=== PATIENT | male | born 1965 | race Caucasian/White ===

== ENCOUNTER 2021-03-16 10:59 | Emergency (ER) | payer OTHER ==
[~2021-03-16] VITALS: Ht 167.6 cm; Wt 56.7 kg
[2021-03-16] MEDS ORDERED: BAYER CHEWABLE81 MG PO (13:22)
[2021-03-16] MEDS ORDERED: KEPPRA100 MG/1 M PO (13:23)
[2021-03-16] MEDS ORDERED: DOCU LIQUI50 MG/5 ML PO (13:23)
[2021-03-16] MEDS ORDERED: FOLIC ACID1 MG PO (13:23)
[2021-03-16] MEDS ORDERED: MOBIC15 MG PO (13:24)
[2021-03-16] MEDS ORDERED: METFORMIN HCL850 MG PO (13:24)
[2021-03-16] MEDS ORDERED: RISPERDAL 1 MG T1 MG PO (13:26)
[2021-03-16] MEDS ORDERED: SEROQUEL 25 MG25 M1 PO (13:27)
[2021-03-16] MEDS ORDERED: SIMVASTATIN40 MG PO (13:29)
[2021-03-16] MEDS ORDERED: SYNTHROID100 MC1 PO (13:29)
[2021-03-16] MEDS ORDERED: TERAZOSIN HCL5 MG PO (13:31)
[2021-03-16] MEDS ORDERED: TRAZODONE HCL100 MG PO (13:31)
[2021-03-16] MEDS ORDERED: VIMPAT10 MG/1 ML PO (13:34)
[2021-03-16 14:00] VITALS: BP 114/68
== END 2021-03-16 15:33 | disposition home or self-care (01) ==
LOC: ER 10:59
DX: Z43.1 Encounter for attention to gastrostomy (principal); F17.210 Nicotine dependence, cigarettes, uncomplicated; Z79.82 Long term (current) use of aspirin; Z79.899 Other long term (current) drug therapy